=== PATIENT | male | born 2000 | race Caucasian/White ===

== ENCOUNTER 2023-09-07 19:09 | Emergency (ER) | payer MEDICAID ==
[~2023-09-07] VITALS: Ht 177.8 cm; Wt 107.0 kg
[2023-09-07 19:11] VITALS: O2SAT 96
[2023-09-07] MEDS ORDERED: KETOROLAC 30MG/ML VIAL IM ONE (19:30)
[2023-09-07] MEDS ORDERED: ACETAMINOPHEN 325MG TABLET PO ONE (19:30)
[2023-09-07] MEDS ORDERED: FENTANYL CITRATE/PF 50MCG/ML 2ML VIAL IV ONE (21:00)
[2023-09-07] MEDS ORDERED: PROPOFOL 200MG/20ML VIAL IV ONE (21:00)
[2023-09-07] MEDS: MORPHINE SULFATE 4 MG/ML INJ (FOR IV/IM USE) IV ONE (21:12)
[2023-09-07 21:40] LABS: BASOPHILS % 0.5 % (0.0-2.0); EOSINOPHILS % 0.2 % (0.0-5.0); HEMATOCRIT. 44.8 % (42.0-52.0); HEMOGLOBIN. 14.9 g/dL (14.0-18.0); LYMPHOCYTES % 11.7 % (20.0-50.0); MEAN CORPUSCULAR HEMOGLOBIN 27.7 pg (28.0-32.0); MEAN CORPUSCULAR HGB CONC 33.2 g/dL (31.0-37.0); MEAN CORPUSCULAR VOLUME 83.4 fL (80.0-94.0); MEAN PLATELET VOLUME 8.2 fl (7.4-10.4); MONOCYTES % 5.2 % (2.0-8.0); NEUTROPHILS % 82.4 % (40.0-76.0); PLATELET 355 x1000/uL (130-400); RED BLOOD CELL COUNT 5.37 mill/uL (4.7-6.1); RED CELL DISTRIBUTION WIDTH 14.2 % (11.6-14.6); WHITE BLOOD COUNT 15.4 x1000/uL (4.5-11.0)
[2023-09-07 21:41] LABS: CHLORIDE 107 mEq/L (98-107); POTASSIUM 3.8 mEq/L (3.5-5.1); SODIUM 139 mEq/L (136-145)
[2023-09-07 21:42] LABS: CARBON DIOXIDE 26 mEq/L (21-32)
[2023-09-07 21:43] LABS: CALCIUM 9.8 mg/dL (8.7-10.4)
[2023-09-07 21:47] LABS: CREATININE 0.8 mg/dL (0.6-1.3); GLUCOSE 101 mg/dL (70-105); UREA NITROGEN BLOOD 14 mg/dL (9-23)
[2023-09-07 21:51] LABS: PARTIAL THROMBOPLASTIN TIME 29.1 sec (23.4-31.0); PROTHROMBIN TIME 11.1 sec (9.6-11.0)
[2023-09-07] MEDS: FENTANYL CITRATE/PF 50MCG/ML 2ML VIAL IV NR (22:58)
[2023-09-07] MEDS: PROPOFOL 200MG/20ML VIAL IV NR (22:58)
[2023-09-07] MEDS: ACETAMINOPHEN 325MG TABLET PO NR (22:59)
[2023-09-07] MEDS ORDERED: HYDR-4001 MT (23:03)
[2023-09-07] MEDS ORDERED: IBUP-2029 MT (23:03)
[2023-09-08] MEDS: KETOROLAC 30MG/ML VIAL IM NR (02:12)
[2023-09-08 02:31] VITALS: BP 151/92; PULSE 95; RESP 22; TEMP 98.2
== END 2023-09-08 02:00 | disposition home or self-care (01) ==
LOC: ER 19:09
DX: S32.491A Other specified fracture of right acetabulum, initial encounter for closed fracture (principal); V98.8XXA Other specified transport accidents, initial encounter; Y93.89 Activity, other specified; Y92.89 Other specified places as the place of occurrence of the external cause; Y99.8 Other external cause status
CPT/HCPCS: 80048; 85025; 85610; 85730; 86850; 86900; 86901; 36415; 73502; 73560; 70450; 71260; 72125; 73700; 74177; 27250; 96374; 96375; 99152; 99291; 96372; J3010; J1885 ×2; J2704; J2270; L1830; Z7610 ×2; 27825